=== PATIENT | female | born 1945 | race Caucasian/White ===

== ENCOUNTER → 2017-05-01 11:34 | Outpatient (POV) | payer MEDICARE, SELFPAY | PROVIDERS: PCP Internal Medicine Adolescent Medicine; Visit Provider Internal Medicine | DX: Z00.00 Encounter for general adult medical examination without abnormal findings (principal) ==

== ENCOUNTER → 2017-07-07 09:42 | Outpatient (CLI) | payer MEDICARE, SELFPAY ==
--- NOTE | 2017-07-07 09:45 | XR_ITS ---
XR knee LT 4V COMPARISON: Left knee 10/26/2016 HISTORY: Left knee pain TECHNIQUE: AP PA and lateral weight-bearing views and sunrise view FINDINGS: There is prominent joint space narrowing laterally and there is marked spurring of tibial spines. There is mild spurring of the lateral tibial plateau. There is narrowing of patellofemoral space with spurring of the superior and inferior borders of the patella. No definite fracture or loose body. IMPRESSION: Prominent heterogenic changes of knee primarily involving lateral joint space with interval progression of changes from the previous study with almost kihy-oq-ydgw appearance of the lateral joint space
== END ==
PROVIDERS: PCP Internal Medicine Adolescent Medicine; Visit Provider Orthopaedic Surgery
DX: M17.12 Unilateral primary osteoarthritis, left knee (principal)
CPT/HCPCS: 73564

== ENCOUNTER → 2018-01-29 09:11 | Outpatient (POV) | payer MEDICARE, SELFPAY | PROVIDERS: Visit Provider Nurse Practitioner Acute Care | DX: Z00.00 Encounter for general adult medical examination without abnormal findings (principal) ==

== ENCOUNTER → 2018-09-06 08:41 | Outpatient (CLI) | payer MEDICARE, SELFPAY ==
--- NOTE | 2018-09-06 08:46 | MM_ITS ---
MM Dig screening mamm BI w/CAD CAD Screening COMPARISON: Digital mammograms with CAD 12/26/2016 and additional prominence on views right breast 01/05/2017 INDICATION: There is a history of breast cancer in patient's paternal aunt. TECHNIQUE: Standard CC and MLO images were obtained. R2 CAD reviewed. FINDINGS: Scattered fibroglandular densities are seen throughout both breasts. The tiny nodular density deep within the right breast seen on previous exams is not definitely seen on today's study. This likely was a tiny microcyst which decompressed. There is a benign-appearing microcalcification right breast. There is no suspicious lesion and there are no suspicious microcalcifications. IMPRESSION: Fibrofatty parenchyma with no suspicious lesion seen BI-RADS Category: 2 Benign Finding(s) RECOMMENDED FOLLOW-UP: 1YR - 1 YEAR FOLLOW-UP (A letter has been sent to the patient regarding results of the study.)
== END ==
PROVIDERS: PCP Internal Medicine Adolescent Medicine; Visit Provider Internal Medicine Adolescent Medicine
DX: Z12.31 Encounter for screening mammogram for malignant neoplasm of breast (principal)
CPT/HCPCS: 77067

== ENCOUNTER → 2019-02-18 10:48 | Outpatient (CLI) | payer MEDICARE, SELFPAY ==
--- NOTE | 2019-02-18 10:52 | XR_ITS ---
PROCEDURE: XR KNEE LT 4V CLINICAL INDICATION: left knee pain COMPARISON: KNEE3R KNEE-3 VIEWS-RT from 05/13/2013 KNEE3L KNEE-3 VIEWS-LT from 05/13/2013 KNEE3L KNEE-3 VIEWS-LT from 10/26/2016 [id number] XR knee LT 4V from 07/07/2017 FINDINGS: No fracture or dislocation. No lytic or blastic change. There is normal mineralization. Are severe osteoarthritic changes of the lateral compartment and moderate to severe osteoarthritic change of the medial compartment and patellofemoral joint. The no fracture or dislocation. No lytic or blastic change. Other findings:None. IMPRESSION: Severe osteoarthritic change of the lateral compartment which appears slightly worse Dictated by: Anuj Horner MD 02/18/2019 12:35 Electronically signed by Anuj Horner MD in [place] 02/18/2019 12:35
== END ==
PROVIDERS: PCP Internal Medicine Adolescent Medicine; Visit Provider Orthopaedic Surgery
DX: M25.562 Pain in left knee (principal)
CPT/HCPCS: 73564

== ENCOUNTER → 2019-10-10 12:36 | Outpatient (CLI) | payer MEDICARE, SELFPAY ==
--- NOTE | 2019-10-10 12:41 | MM_ITS ---
PROCEDURE: MM DIG SCREENING MAMM BI W/CAD Digital Breast Tomosynthesis Included CLINICAL INDICATION: SCREENING There is a history of breast cancer patient's paternal aunt. COMPARISON: DMSB DIG MAMM-SCREEN JESICA W/CAD from 12/26/2016 [id number] DIG MAMM-DX UNI RT W/AV W/CAD from 01/05/2017 DIG MAMM-SCREEN JESICA from 09/06/2018 TECHNIQUE: Standard CC and MLO images and 3D Tomosynthesis was obtained. R2 CAD reviewed. FINDINGS: Scattered fibroglandular densities are seen throughout both breast. There is a benign-appearing calcification right breast. There is no suspicious lesion and no suspicious microcalcifications. IMPRESSION: Fibrofatty parenchyma with no suspicious lesions seen BI-RAD Category: 2 Benign Finding(s) FOLLOW-UP: 1YR 1 Year Follow-up (A letter has been sent to the patient regarding results of the study.) Dictated by: Dr. Haroon Dooley MD 10/14/2019 09:[address] Haroon Dooley MD in [place] 10/14/2019 09:45
== END ==
PROVIDERS: PCP Internal Medicine Adolescent Medicine; Visit Provider Internal Medicine Adolescent Medicine
DX: Z12.31 Encounter for screening mammogram for malignant neoplasm of breast (principal)
CPT/HCPCS: 77063; 77067

== ENCOUNTER → 2019-12-14 10:21 | Outpatient (CLI) | payer MEDICARE, SELFPAY ==
[2019-12-14 12:16] LABS: Coronavirus 19 IgG Antibody Negative (Negative); Coronavirus 19 IgM Antibody Negative (Negative)
== END ==
PROVIDERS: Visit Provider Internal Medicine Gastroenterology
DX: Z01.818 Encounter for other preprocedural examination (principal); Z13.810 Encounter for screening for upper gastrointestinal disorder; R13.10 Dysphagia, unspecified
CPT/HCPCS: 36415; 86328

== ENCOUNTER 2019-12-16 06:51 | Day surgery (SDC) | payer MEDICARE, SELFPAY ==
[2019-12-16 07:16] VITALS: BP 189/91; PULSE 79; RESP 20; TEMP 36.2; O2SAT 96; BMI 24.6
--- NOTE | 2019-12-16 07:59 | P.PN_ITS ---
[facility] Anesthesia Checklist - Structural Data Admitted From: Home Planned Operative Procedure/s: egd Consent for Planned Operative Procedure(s) Verified: Yes - Additional verifications Anesthesia Reactions: No Hx Blood Transfusions: No Blood Transfusion Reaction: Yes - Airway Assessment C-Spine Mobility Assessed: Yes TMJ Mobility Assessed: Yes Dentition: Good Dentition - Neurological Assessment Level of Consciousness: Awake, Alert, Appropriate - Anesthesia Plan Anesthesia Risk discussed: Yes Anesthesia Plan: Patient unable to respond/answer ASA Class: II Anesthesia Type: MAC [facility] History I have reviewed the patient's past medical history: Yes Medical History: Reports:: Asthma, Hyperlipidemia, Hypertension, Lung Disease, Osteoporosis Denies:: Cancer, Diabetes Mellitus Type 1, Diabetes Mellitus Type 2, Internal Pacemaker, Migraine, MRSA, Seizures *Have you ever received a pneumonia vaccine?: Yes *Have you received a flu vaccine this season?: Yes Other Medical History: Reports: Arthritis, Blood Transfusion Reaction, Osteoporosis Anesthesia experience/problems:: none Laterality Cases: Bilateral: Other Other Surgeries: Yes: Hysterectomy-Total, Other. No: Pacemaker Amputation: No Fractures: No - *Social History Smoking Status: Never smoker Alcohol Intake: never Substance Use Type: denies use *Occupational Status:: retired Housing: house Household Members: spouse *Travel in the last 8 weeks: None Family Hx:: Coronary Artery Disease
[2019-12-16 08:07] VITALS: O2SAT 97
--- NOTE | 2019-12-16 08:11 | HMH.PROC ---
[facility] Procedure Note Procedure Note:: Upper Endoscopy Procedure Report: Esophagogastroduodenoscopy with cold biopsies and TTS balloon dilation Endoscopost: Sterling Blanco II, MD Referring Physician: Car Kent M.D. Date of Procedure: December 16, 2019 Equipment: Olympus GIF 180 standard upper endoscope Sedation: MAC sedation Indications: Mrs. Delgado is a 74-year-old female with longstanding dyspepsia and reflux. She did have an EGD with pr in February 2016 and had increased cricopharyngeal resting tone/cricopharyngeal spasm with moderate esophageal dysmotility. She had a esophageal dilation at that time. She also had reactive gastropathy. She has been on Nexium long-term. She also takes domperidone before meals and at bedtime (4 times daily). She does use dead-hca-wdsezqp acid relievers including apple cider vinegar, tumeric, dalila and clove. The patient has had ongoing throat burning, globus sensation and dysphagia. She does get some regurgitation. She reports bloating, belching and early satiety. She gets some intermittent epigastric discomfort. She reports no nausea. She does have more regulated bowel function as long she uses the combine fiber bowel regimen (MiraLAX plus Metamucil). The patient did have a colonoscopy with pr in March 2018 and had 5 colon polyps (tubular adenomas x4/serrated adenoma x1) which were removed. The patient does report frequent clearance of the throat and coughing. Procedure: Prior to the procedure, a history and physical exam was performed, and patient's medications and allergies were reviewed. The risks, benefits and alternatives of the sedation and procedure were discussed with the patient. All questions were answered and informed consent was obtained. The patient was brought to the procedure room. Patient identification and proposed procedure were verified by the physician and the nurse. The patient was placed in a left lateral decubitus position and the scope was passed under direct vision. Throughout the procedure, the patient's blood pressure, pulse, and oxygen saturations were monitored continuously. The upper GI endoscopy was accomplished without difficulty. The patient tolerated the procedure well. Findings: The scope was passed directly into the upper esophagus and advanced to the third portion of the duodenum. The post bulbar duodenum and duodenal bulb were normal with normal mucosa and conniventes. The scope was withdrawn through a normal duodenal bulb and pylorus into the stomach. There was linear reactive gastropathy of the antrum and body of the stomach with bile reflux. The remainder of the antrum, body and fundus of the stomach were grossly normal. Upon retroflexion there was a small 2 cm sliding hiatal hernia. 2 biopsies were taken in the antrum and along the lesser curvature for histology to rule out gastritis and/or H pylori. The scope was then withdrawn into the esophagus. There was no evidence of reflux esophagitis or Paz's. There was no Schatzki's ring. There was a serrated Z line so biopsies were taken at the GE junction to rule out intestinal metaplasia. There were strong tertiary contractions and evidence of moderate esophageal dysmotility. The entire esophagus was dilated to 60 Bengali/20 mm with a TTS hydrostatic balloon. There was resistance at the cricopharyngeus/cricopharyngeal spasm. The remainder of the esophageal mucosa was normal. Impression: 1. Cricopharyngeal spasm status post dilation to 20 mm 2. Nonerosive GERD with moderate esophageal dysmotility and small 2 cm sliding hiatal hernia 3. Linear reactive gastropathy with bile reflux Plan: I will discuss additional dietary measures and treatment options. I will follow-up the biopsies.
[2019-12-16 08:25] VITALS: BP 135/75; PULSE 74; RESP 16; TEMP 36.3; O2SAT 98
[2019-12-16 08:35] VITALS: BP 163/92; PULSE 73; RESP 16; O2SAT 94
[2019-12-16 08:45] VITALS: BP 184/94; PULSE 68; RESP 16; O2SAT 94
[2019-12-16 08:55] VITALS: BP 184/84; PULSE 68; RESP 16; TEMP 36.3; O2SAT 94
== END 2019-12-16 08:59 | disposition home or self-care (01) ==
PROVIDERS: PCP Internal Medicine Adolescent Medicine; Visit Provider Internal Medicine Gastroenterology
PROC: 0DJ08ZZ Inspection of Upper Intestinal Tract, Via Natural or Artificial Opening Endoscopic (ICD-10-PCS; CPT 43235; principal; 2019-12-16 08:00)
DX: K31.9 Disease of stomach and duodenum, unspecified (principal); K22.4 Dyskinesia of esophagus; J39.2 Other diseases of pharynx; K21.9 Gastro-esophageal reflux disease without esophagitis; Z87.19 Personal history of other diseases of the digestive system; J45.909 Unspecified asthma, uncomplicated; E78.5 Hyperlipidemia, unspecified; I10 Essential (primary) hypertension; M81.0 Age-related osteoporosis without current pathological fracture; M19.90 Unspecified osteoarthritis, unspecified site; Z90.710 Acquired absence of both cervix and uterus; Z79.899 Other long term (current) drug therapy
CPT/HCPCS: 43239; 43249; 88305; C1726

== ENCOUNTER → 2020-02-11 09:57 | Outpatient (CLI) | payer MEDICARE, SELFPAY ==
--- NOTE | 2020-02-11 10:04 | XR_ITS ---
PROCEDURE: XR DEXA AXIAL SKELETON CLINICAL HISTORY: POST MENOPAUSAL Patient currently on calcium. COMPARISON: No exams were available for comparison FINDINGS: The right hip BMD is 0.734 grams/centimeter squared with a T-score of -1.7. The left hip BMD is 0.763 grams/centimeter squared with a T-score of -1.5. The lumbar spine BMD is 1.227 g per cm squared with a T-score of 1.6. IMPRESSION: Values in the osteopenia range lumbar spine and bilateral hips Based on these results a follow-up exam is recommended in 2 year. Dictated by: Dr. Haroon Dooley MD 02/11/2020 14:21 Dr. Haroon Dooley MD in [place] 02/11/2020 14:21
== END ==
PROVIDERS: PCP Internal Medicine Adolescent Medicine; Visit Provider Internal Medicine Adolescent Medicine
DX: Z13.820 Encounter for screening for osteoporosis (principal); Z78.0 Asymptomatic menopausal state
CPT/HCPCS: 77080

== ENCOUNTER → 2020-03-02 08:47 | Outpatient (POV) | payer MEDICARE, SELFPAY | PROVIDERS: Visit Provider Nurse Practitioner Family | DX: Z00.00 Encounter for general adult medical examination without abnormal findings (principal) ==

== ENCOUNTER → 2020-08-10 10:25 | Outpatient (CLI) | payer MEDICARE, SELFPAY ==
[2020-08-10 10:49] LABS: Basophils # 0.1 K/mm3 (0-0.2); Basophils % 1.5 % (0.1-2.0); Eosinophils # 0.2 K/mm3 (0.0-0.4); Hematocrit 44.3 % (37.0-47.0); Hemoglobin 14.4 g/dL (12.2-16.2); Lymphocytes # 1.1 K/mm3 (0.7-4.5); Lymphocytes % 18.2 % (10-50); Mean Corpuscular HGB Conc 32.6 g/dL (31.8-35.4); Mean Corpuscular Hemoglobin 30.5 pg (27.0-31.2); Mean Corpuscular Volume 93.8 fl (81-99); Mean Platelet Volume 7.1 fl (7.4-10.4); Monocytes # 0.4 K/mm3 (0.1-1.0); Monocytes % 5.7 % (1.7-9.3); Neutrophils # 4.4 K/mm3 (1.8-7.8); Neutrophils % 71.6 % (37.0-80.0); Platelet Count 353 K/mm3 (142-424); Red Blood Count 4.72 M/mm3 (4.20-5.40); Red Cell Distribution Width 14.1 % (11.5-17.5); White Blood Count 6.1 K/mm3 (4.8-10.8)
[2020-08-10 11:26] LABS: Alanine Aminotransferase 18 U/L (12-78); Albumin Level 4.1 g/dl (3.5-5.0); Albumin/Globulin Ratio 1.8 (1.1-1.8); Alkaline Phosphatase 78 U/L (38-126); Anion Gap 7.7 mEq/L (5-15); Aspartate Amino Transferase 26 U/L (14-36); Bilirubin,Total 0.6 mg/dl (0.2-1.3); Blood Urea Nitrogen 13 mg/dl (7-17); Calcium 9.4 mg/dl (8.4-10.2); Carbon Dioxide 31 mmol/L (22.0-30.0); Chloride 103 mmol/L (98-107); Chol/HDL Ratio 3.4 (1-3.5); Cholesterol 238 mg/dl (140-200); Estimated Glomerular Filt Rate 61 ml/min (>60); GFR (African American) 74 ML/MIN (>60); Globulin 2.3 g/dL (1.3-3.2); Glucose 95 mg/dl (74-100); HDL Cholesterol 70 mg/dl (40-60); Potassium 4.7 mmoL/L (3.5-5.1); Sodium 137 mmol/L (136-145); Total Protein,Serum 6.4 g/dl (6.3-8.2); Triglycerides 186 mg/dl (30-150); VLDL Cholesterol 37 mg/dL (0-40)
[2020-08-10 11:37] LABS: Direct LDL Cholesterol 117.51 mg/dL (100-129)
[2020-08-10 11:44] LABS: 25-OH Vitamin D, Total 46.1 ng/mL (30-100)
[2020-08-10 11:57] LABS: Thyroid Stimulating Hormone 1.66 uIU/mL (0.465-4.68)
[2020-08-10 12:15] LABS: Vitamin B12 942 pg/mL (239-931)
== END ==
PROVIDERS: Visit Provider Internal Medicine Adolescent Medicine
DX: I10 Essential (primary) hypertension (principal); E78.5 Hyperlipidemia, unspecified; F51.04 Psychophysiologic insomnia; M85.89 Other specified disorders of bone density and structure, multiple sites
CPT/HCPCS: 36415; 80053; 80061; 82306; 82607; 84443; 85025

== ENCOUNTER → 2020-09-07 09:03 | Outpatient (POV) | payer MEDICARE, SELFPAY | PROVIDERS: Visit Provider Nurse Practitioner Family | DX: Z00.00 Encounter for general adult medical examination without abnormal findings (principal) ==

== ENCOUNTER → 2021-08-24 13:11 | Outpatient (POV) | payer MEDICARE, SELFPAY | PROVIDERS: Visit Provider Dermatology | DX: Z00.00 Encounter for general adult medical examination without abnormal findings (principal) ==

== ENCOUNTER → 2022-03-01 14:00 | Outpatient (POV) | payer MEDICARE, SELFPAY | PROVIDERS: Visit Provider Dermatology | DX: Z00.00 Encounter for general adult medical examination without abnormal findings (principal) ==

== ENCOUNTER → 2022-03-15 10:05 | Outpatient (CLI) | payer MEDICARE, SELFPAY ==
--- NOTE | 2022-03-15 10:09 | XR_ITS ---
FINAL REPORT CLINICAL HISTORY: CERVICALGIA FINDINGS: CERVICAL SPINE Five views were obtained. There is no acute fracture. There is no malalignment. There are moderate and severe degenerative changes greatest at C5-C6. There is multilevel disc space narrowing and osteophyte formation. Mild kyphosis is centered at C5-C6. The oblique images are suboptimal. There is mild right C2-C3 and C6-C7 neural foraminal narrowing. IMPRESSION: Moderate and severe degenerative changes. Reviewed, Interpreted and Dictated by Artur Corona III, MD Transcribed by Eduin Solano Authenticated and [facility]
== END ==
PROVIDERS: PCP Internal Medicine Adolescent Medicine; Visit Provider Internal Medicine Adolescent Medicine
DX: M54.2 Cervicalgia (principal)
CPT/HCPCS: 72050

== ENCOUNTER → 2022-06-24 11:02 | Outpatient (CLI) | payer MEDICARE, SELFPAY ==
--- NOTE | 2022-06-24 11:07 | XR_ITS ---
FINAL REPORT CLINICAL HISTORY: WHEEZING CHRONIC BRONCHITIS FINDINGS: TWO-VIEW CHEST The heart size is normal. There is an elevated left hemidiaphragm. There is scarring at the left base. There is no pneumothorax. IMPRESSION: No acute cardiopulmonary process. Reviewed, Interpreted and Dictated by Amol Eagle MD Transcribed by Edna Torres Authenticated and . [facility]
== END ==
PROVIDERS: PCP Internal Medicine Adolescent Medicine; Visit Provider Nurse Practitioner Family
DX: J45.998 Other asthma (principal)
CPT/HCPCS: 71046

== ENCOUNTER → 2022-08-08 08:43 | Outpatient (CLI) | payer MEDICARE, SELFPAY | PROVIDERS: PCP Internal Medicine Adolescent Medicine; Visit Provider Internal Medicine Adolescent Medicine | DX: I47.9 Paroxysmal tachycardia, unspecified (principal); I10 Essential (primary) hypertension; R13.13 Dysphagia, pharyngeal phase | CPT/HCPCS: 93306 ==

== ENCOUNTER → 2022-08-23 10:46 | Outpatient (CLI) | payer MEDICARE, SELFPAY ==
--- NOTE | 2022-08-23 10:52 | FL_ITS ---
FINAL REPORT CLINICAL HISTORY: ft 2.03min FINDINGS: MODIFIED BARIUM SWALLOW History: Dysphagia FINDINGS: Fluoroscopy was provided for the speech pathologist to evaluate the swallowing mechanism. The patient was given several different consistencies of barium while the swallow was visualized fluoroscopically. The report of the speech pathologist should be consulted prior to making dietary decisions. FLUOROSCOPY TIME:2 minutes 3 seconds IMPRESSION: Modified barium swallow under fluoroscopic guidance. Please see the report of the speech pathologist for Dietary recommendations. Films reviewed , interpreted and dictated by Dr. Corona Transcribed by Everette Orosco PA-C. Reviewed, Interpreted and Dictated by Artur Corona III, MD Transcribed by MARLEN Duke Authenticated and [facility]
--- NOTE | 2022-08-23 14:51 | HMH.SLMBS2 ---
Speech & Language Evaluation Speech/Language Mod Barium Swallow Start: 08/23/22 14:28 Freq: once Status: Complete Protocol: Document 08/23/22 14:28 ELEAZARSUZETTE (Rec: 08/23/22 14:51 ANIA [id number]) General Information General Current Food Consistancy Regular,Thin Liquids Dentition Good Dentition Oxygen Status Room Air Patient Orientation Person,Place,Time,Situation Ability to Follow Directions Excellent Communication Ability No Impairment MBS Recommendations Diet Dietary Recommendations Regular,Thin Liquids Treatment/Strategies Strategy/Precaution Recommend Sitting Upright (90 deg),Small Bites and Sips,Alternate Liquids/Solids Referrals/Other Recommended Referrals GI Consult Mod Barium Swallow Impressions Summary and Impressions Oral Phase Impression No Impairment (WFL) Oral Phase Summary No significant deficits noted in the oral phase. Adequate mastication, back of tonuge control, and AP tranist. Pt was able to timely and efficiently move the bolus back into the pharynx with no premature spillage present. No significant oral residue was present during the study. Pharyngeal Phase Impression Mild Impairment Pharyngeal Phase Summary Mild pahryngeal dysphagia. No aspiration or penetration was present during the study. Prominent cervical anatomy, including an outpouching of tissue on the posterior pharyngeal wall, is impacting the pharyngeal squeeze as well as BOT retraction, resulting in mild diffuse pharyngeal residue. Pt is able to significantly reduce the residue with independent subsequent swallows, but residue does not clear completely. Residue is increased with liquids vs. solids. She is able to clear pills with no issues. Speech/Language MBS Assessment/Goals/Plan Assessment Date of Evaluation: 08/23/22 Evaluation Type Initial Certification Assessment/Problems Chronic cough per pt report. Does Patient Qualify for Service No
== END ==
PROVIDERS: PCP Internal Medicine Adolescent Medicine; Visit Provider Internal Medicine Adolescent Medicine
DX: R13.13 Dysphagia, pharyngeal phase (principal); R00.0 Tachycardia, unspecified; I10 Essential (primary) hypertension
CPT/HCPCS: 70371; 92611

== ENCOUNTER → 2022-09-06 08:43 | Outpatient (CLI) | payer MEDICARE, SELFPAY ==
--- NOTE | 2022-09-06 08:55 | XR_ITS ---
FINAL REPORT CLINICAL HISTORY: RT KNEE PAIN FINDINGS: Four views of the right knee show no evidence of an acute, displaced fracture or dislocation of the visualized bony architecture. There is mild tricompartment degenerative change present. A small joint effusion is identified. IMPRESSION: Mild tricompartment degenerative change of the right knee, with a small joint effusion present. No acute bony abnormality identified. Reviewed, Interpreted and Dictated by Marisa Barakat MD Transcribed by Lara Villalobos Authenticated and [facility]
== END ==
PROVIDERS: PCP Internal Medicine Adolescent Medicine; Visit Provider Orthopaedic Surgery Adult Reconstructive Orthopaedic Surgery
DX: M25.561 Pain in right knee (principal)
CPT/HCPCS: 73564

== ENCOUNTER → 2022-11-08 09:27 | Outpatient (CLI) | payer MEDICARE, SELFPAY ==
--- NOTE | 2022-11-08 09:45 | XR_ITS ---
FINAL REPORT TECHNIQUE: 3 views CLINICAL HISTORY: LOW BACK PAIN COMPARISON: None FINDINGS: There is no fracture present. There are severe degenerative changes with vacuum phenomenon at several levels. There is multilevel disc space narrowing, and multilevel facet osteoarthropathy. There is mild curvature to the left at the L2 level. Vascular calcifications are identified. IMPRESSION: Severe degenerative change as described. No acute bony abnormality identified. Reviewed, Interpreted and Dictated by Artur Corona III, MD Transcribed by Lara Villalobos Authenticated and [facility]
== END ==
PROVIDERS: PCP Internal Medicine Adolescent Medicine; Visit Provider Physician Assistant
DX: M54.50 Low back pain, unspecified (principal)
CPT/HCPCS: 72100

== ENCOUNTER → 2022-12-23 13:47 | Outpatient (CLI) | payer MEDICARE, SELFPAY ==
--- NOTE | 2022-12-23 13:53 | MR_ITS ---
FINAL REPORT CLINICAL HISTORY: LOW BACK PAIN FINDINGS: Multiplanar MR imaging of the lumbar spine was performed without contrast. On the sagittal T2-weighted images, there is abnormal decreased signal throughout the lumbar discs. The vertebrae are of normal height. The vertebral alignment is normal. L1-2: There is no significant canal stenosis or neural foraminal narrowing. L2-3: There is a moderate diffuse disc bulge with moderate to high-grade right neuroforaminal narrowing. L3-4: There is a moderate diffuse disc bulge with posterior lateral disc protrusions. There is moderate to high-grade bilateral neuroforaminal narrowing. L4-5: There is a diffuse disc bulge and a left posterior lateral disc protrusion. There is high-grade left neuroforaminal narrowing. L5-S1: There is a diffuse disc bulge and endplate hypertrophy. There is high-grade bilateral neuroforaminal narrowing. IMPRESSION: Multilevel neuroforaminal compromise most evident on the right at L2-3, bilaterally at L3-4, on the left at L4-5, and bilaterally at L5-S1. Correlate with specific radicular symptoms. Reviewed, Interpreted and Dictated by Amol Eagle MD Transcribed by Marybel Rucker Authenticated and [facility]
== END ==
LOC: RAD 13:47
PROVIDERS: PCP Internal Medicine Adolescent Medicine; Visit Provider Orthopaedic Surgery Adult Reconstructive Orthopaedic Surgery
DX: M54.50 Low back pain, unspecified (principal)
CPT/HCPCS: 72148; 76376

== ENCOUNTER 2023-08-29 08:47 | Day surgery (SDC) | payer MEDICARE, SELFPAY ==
[2023-08-29] VITALS (8 sets, daily range): BP systolic 111–183; BP diastolic 55–87; PULSE 64–78; RESP 16–19; TEMP 36.6; O2SAT 94–98
[2023-08-29] MEDS: CYCLOPENTOLATE 2% OPHTH SOLN 2ML BOTTLE OP ×3 (10:02→10:05)
[2023-08-29] MEDS: TETRACAINE 0.5% OPTH SOL 15ML OP ×3 (10:02→10:04)
[2023-08-29] MEDS: PHENYLEPHRINE 2.5% OPHTH SOLN 2ML OP ×3 (10:02→10:05)
[2023-08-29] MEDS: SODIUM CHLORIDE 0.9% 10ML FLUSH SYRINGE 10 ML IV ×2 (10:03→11:10)
[2023-08-29] MEDS: MIDAZOLAM 2MG/2ML VIAL 1 MG IV (11:06)
[2023-08-29] MEDS: TIMOLOL 0.5% OPTH SOLN 5ML OP (11:10)
[2023-08-29] MEDS: TOBRAMYCIN/DEX OPTH SUSP 2.5ML OP (11:11)
[2023-08-29] MEDS: LIDOCAINE 1% PF 2ML AMPULE 2 ML IJ (11:11)
--- NOTE | 2023-09-12 13:19 | HMH.PROCNOTE ---
[facility] Procedure Note Date: 08/29/23 Time: 13:20 Procedure Note:: Preoperative Diagnosis: Cataract combined NS Cortical Complex [Right Eye Postop diagnosis: same Operation: Microscopic phacoemulsification with intraocular lens implant [Right] Eye Specimen: None Blood Loss: None The patient was examined in the office with a complaint of poor vision in the [right] eye. The patient reports that this interferes with ADLs such as reading, watching TV and/or driving or the vision is like looking through a foggy haze and is very troubling. The patient was examined and found to have a visually significant cataract with best corrected vision of [20/400] by refraction and/or glare testing. Treatment options, risks and benefits were explained and the patient elected to have cataract surgery in an attempt to improve their vision. The patient had the eye anesthetized with topical tetracaine, the eye ways prepped and draped in the usual fashion for cataract surgery. A paracentesis and a temporal keratotomy were made. 0.2cc of 1% lidocaine PF was placed into the anterior chamber. And aqueous/viscoelastic exchange was done and a 360 degree capsulorexis was performed. Through hydrodissection and delineation with BSS on a cannula was done. The lens nucleus was phecoemulsified with CDE of [10.83]. Residual cortical material was removed using automated I&A The capsular bag was deepened with viscoelastica and a PCIOL was placed in the capsular bag with good centration and stability. Residual viscoelastic was removed using automated I&A. The keratotomy incision was hydrated with BSS on a cannula. The wound were checked and found to be water tight. IOP was checked digitally and adjusted as needed so as not to be too high. 1 drop of timolol 0.5%, ofloxacin, prednisolone acetate and ketorolac was instilled and eye shield taped over the eye. The patient was taken to recovery in good condition and will be seen postoperatively.
== END 2023-08-29 11:40 | disposition home or self-care (01) ==
PROVIDERS: PCP Internal Medicine Adolescent Medicine; Visit Provider Ophthalmology
PROC: (CPT 66984; principal; 2023-08-29 11:00)
DX: H25.11 Age-related nuclear cataract, right eye (principal); H53.8 Other visual disturbances
CPT/HCPCS: 66984; V2632

== ENCOUNTER 2023-09-12 08:50 | Day surgery (SDC) | payer MEDICARE, SELFPAY ==
[2023-09-08 13:54] VITALS: BMI 24.1
[2023-09-12] MEDS: PHENYLEPHRINE 2.5% OPHTH SOLN 2ML OP ×3 (09:40→09:41)
[2023-09-12] MEDS: CYCLOPENTOLATE 2% OPHTH SOLN 2ML BOTTLE OP ×3 (09:40→09:41)
[2023-09-12] MEDS: TETRACAINE 0.5% OPTH SOL 15ML OP ×3 (09:40→09:41)
[2023-09-12 09:47] VITALS: BP 161/83; PULSE 73; RESP 18; TEMP 36.2; O2SAT 98
[2023-09-12 11:03] VITALS: BP 173/81; PULSE 75; RESP 16; O2SAT 94
[2023-09-12] MEDS: MIDAZOLAM 2MG/2ML VIAL 2 MG (11:03)
[2023-09-12] MEDS: TOBRAMYCIN/DEX OPTH SUSP 2.5ML OP (11:07)
[2023-09-12] MEDS: LIDOCAINE 1% PF 2ML AMPULE 2 ML IJ (11:07)
[2023-09-12] MEDS: TIMOLOL 0.5% OPTH SOLN 5ML OP (11:07)
[2023-09-12 11:08] VITALS: BP 141/77; PULSE 80; RESP 16; O2SAT 94
[2023-09-12] MEDS: SODIUM CHLORIDE 0.9% 10ML FLUSH SYRINGE 10 ML IV (11:08)
[2023-09-12 11:13] VITALS: BP 136/75; PULSE 75; RESP 16; O2SAT 96
[2023-09-12 11:18] VITALS: BP 140/81; PULSE 76; RESP 16; O2SAT 96
[2023-09-12 11:20] VITALS: BP 159/79; PULSE 77; RESP 16; TEMP 36.2; O2SAT 100
--- NOTE | 2023-09-12 13:06 | HMH.PROCNOTE ---
[facility] Procedure Note Date: 09/12/23 Time: 13:06 Procedure Note:: Preoperative Diagnosis: Cataract combined NS Cortical Complex [Left] Eye Postop diagnosis: same Operation: Microscopic phacoemulsification with intraocular lens implant [Left] Eye Specimen: None Blood Loss: None The patient was examined in the office with a complaint of poor vision in the [left] eye. The patient reports that this interferes with ADLs such as reading, watching TV and/or driving or the vision is like looking through a foggy haze and is very troubling. The patient was examined and found to have a visually significant cataract with best corrected vision of [20/400] by refraction and/or glare testing. Treatment options, risks and benefits were explained and the patient elected to have cataract surgery in an attempt to improve their vision. The patient had the eye anesthetized with topical tetracaine, the eye ways prepped and draped in the usual fashion for cataract surgery. A paracentesis and a temporal keratotomy were made. 0.2cc of 1% lidocaine PF was placed into the anterior chamber. And aqueous/viscoelastic exchange was done and a 360 degree capsulorexis was performed. Through hydrodissection and delineation with BSS on a cannula was done. The lens nucleus was phecoemulsified with CDE of [9.68]. Residual cortical material was removed using automated I&A The capsular bag was deepened with viscoelastica and a PCIOL was placed in the capsular bag with good centration and stability. Residual viscoelastic was removed using automated I&A. The keratotomy incision was hydrated with BSS on a cannula. The wound were checked and found to be water tight. IOP was checked digitally and adjusted as needed so as not to be too high. 1 drop of timolol 0.5%, ofloxacin, prednisolone acetate and ketorolac was instilled and eye shield taped over the eye. The patient was taken to recovery in good condition and will be seen postoperatively.
== END 2023-09-12 11:32 | disposition home or self-care (01) ==
PROVIDERS: PCP Internal Medicine Adolescent Medicine; Visit Provider Ophthalmology
PROC: (CPT 66984; principal; 2023-09-12 11:00)
DX: H25.12 Age-related nuclear cataract, left eye (principal)
CPT/HCPCS: 66984; J2250; V2632

== ENCOUNTER 2023-10-04 09:38 | Outpatient (CLI) | payer MEDICARE, SELFPAY ==
--- NOTE | 2023-10-04 09:44 | XR_ITS ---
FINAL REPORT CLINICAL HISTORY: Foot pain COMPARISON: None FINDINGS: LEFT FOOT: Three views of the left foot were obtained. There is no acute fracture or dislocation. Mild degenerative changes present as well as a small plantar calcaneal spur. A pes planus deformity is noted. There is no soft tissue abnormality. IMPRESSION: Mild degenerative change with a small plantar calcaneal spur. Pes planus deformity. Reviewed, Interpreted and Dictated by Artur Corona III, MD Transcribed by Lara Villalobos Authenticated and [facility] [place] [place]
--- NOTE | 2023-10-04 09:44 | XR_ITS ---
FINAL REPORT CLINICAL HISTORY: Foot pain COMPARISON: None FINDINGS: RIGHT FOOT: Three views of the right foot were obtained. There is no acute fracture or dislocation. Mild degenerative change is present in the right foot, with a plantar calcaneal spur. A pes planus deformity is present as well. There is no soft tissue abnormality. IMPRESSION: Mild degenerative change, with a plantar calcaneal spur. Pes planus deformity. Reviewed, Interpreted and Dictated by Artur Corona III, MD Transcribed by Lara Villalobos Authenticated and [facility]
== END 2023-10-04 23:59 | disposition home or self-care (01) ==
LOC: RAD 09:42
PROVIDERS: PCP Internal Medicine Adolescent Medicine; Visit Provider Nurse Practitioner
DX: M79.671 Pain in right foot; M79.672 Pain in left foot
CPT/HCPCS: 73630

== ENCOUNTER 2023-10-23 10:41 | Outpatient (CLI) | payer MEDICARE, SELFPAY ==
--- NOTE | 2023-10-23 10:42 | CT_ITS ---
FINAL REPORT CLINICAL HISTORY: Right Foot Mass top of right foot FINDINGS: CT RIGHT FOOT WITHOUT AND WITH CONTRAST TECHNIQUE: Pre and postcontrast axial and reformatted sagittal and coronal images were obtained of the right foot. This study was performed with techniques to keep radiation doses as low as reasonably achievable, (ALARA). Individualized dose reduction techniques using automated exposure control or adjustment of mA and/or kV according to the patient's size were employed. FINDINGS: There is a polypoid dermoid lesion along the dorsal mid lateral foot. This process extends to a depth of approximately 3 mm deep to the skin surface. Lesion measures 13 x 9 mm at the base with polypoid extension up to 13 mm. There is no bony involvement. No bone destruction is seen. IMPRESSION: Exophytic dermoid lesion of the lateral dorsal midfoot without bony involvement. Dermatology or surgical consultation is recommended. Reviewed, Interpreted and Dictated by Marisa Barakat MD Transcribed by Marybel Rucker Authenticated and [facility]
[2023-10-23 11:18] LABS: Blood Urea Nitrogen 21 mg/dl (7-17); Estimated Glomerular Filt Rate 53 ml/min (>60); GFR (African American) 65 ML/MIN (>60)
== END 2023-10-23 23:59 | disposition home or self-care (01) ==
LOC: RAD 10:42
PROVIDERS: PCP Internal Medicine Adolescent Medicine; Visit Provider Podiatrist
DX: R22.41 Localized swelling, mass and lump, right lower limb (principal); M79.671 Pain in right foot
CPT/HCPCS: 36415; 73702; 82565; 84520; Q9967

== ENCOUNTER 2023-10-26 09:34 | Outpatient (CLI) | payer MEDICARE, SELFPAY ==
[2023-10-26 10:23] LABS: Basophils % 0.2 % (0.1-2.0); Hematocrit 38.9 % (37.0-47.0); Hemoglobin 12.6 g/dL (12.2-16.2); Lymphocytes # 0.7 K/mm3 (0.7-4.5); Lymphocytes % 6.5 % (10-50); Mean Corpuscular HGB Conc 32.4 g/dL (31.8-35.4); Mean Corpuscular Hemoglobin 30.7 pg (27.0-31.2); Mean Corpuscular Volume 94.8 fl (81-99); Mean Platelet Volume 7.8 fl (7.4-10.4); Monocytes # 0.6 K/mm3 (0.1-1.0); Monocytes % 5.9 % (1.7-9.3); Neutrophils # 9.5 K/mm3 (1.8-7.8); Neutrophils % 87.4 % (37.0-80.0); Platelet Count 271 K/mm3 (142-424); Red Cell Distribution Width 14.5 % (11.5-17.5); White Blood Count 10.9 K/mm3 (4.8-10.8)
[2023-10-26 10:31] LABS: Alanine Aminotransferase 24 U/L (12-78); Albumin/Globulin Ratio 1.6 (1.1-1.8); Alkaline Phosphatase 64 U/L (38-126); Anion Gap 9.5 mEq/L (5-15); Aspartate Amino Transferase 31 U/L (14-36); Bilirubin,Total 0.3 mg/dl (0.2-1.3); Blood Urea Nitrogen 30 mg/dl (7-17); Calcium 9.3 mg/dl (8.4-10.2); Carbon Dioxide 28 mmol/L (22.0-30.0); Chloride 107 mmol/L (98-107); Estimated Glomerular Filt Rate 69 ml/min (>60); GFR (African American) 84 ML/MIN (>60); Globulin 2.5 g/dL (1.3-3.2); Glucose 74 mg/dl (74-100); Potassium 4.5 mmoL/L (3.5-5.1); Sodium 140 mmol/L (136-145); Total Protein,Serum 6.5 g/dl (6.3-8.2)
[2023-10-26 11:08] LABS: MANUAL DIFFERENTIAL MANUAL DIFFERENTIAL (MANUAL DIFF)
[2023-10-26 11:09] LABS: Erythrocyte Sedimentation Rate 12 mm/hr (0-30)
[2023-10-26 11:48] LABS: Lymphocytes % 9 % (10-50); Monocytes % 2 % (2-9); Neutrophils % 89 % (42-76); Platelet Estimate Normal; RBC Morphology Normal; Total Cells Counted 100
[2023-10-26 19:33] LABS: C-Reactive Protein 0.4 mg/L (0-4)
== END 2023-10-26 23:59 | disposition home or self-care (01) ==
LOC: LAB 09:36
PROVIDERS: PCP Internal Medicine Adolescent Medicine; Visit Provider Podiatrist
DX: R22.41 Localized swelling, mass and lump, right lower limb (principal); Z01.818 Encounter for other preprocedural examination
CPT/HCPCS: 36415; 80053; 85007; 85025; 85027; 85651; 86140

== ENCOUNTER 2023-10-30 12:05 | Outpatient (CLI) | payer MEDICARE, SELFPAY ==
--- NOTE | 2023-10-30 12:58 | XR_ITS ---
FINAL REPORT CLINICAL HISTORY: preop testing for respiratory clearance, shortness of breath COMPARISON: 06/24/2022 FINDINGS: PA and lateral views of the chest were obtained. The cardiac and mediastinal silhouettes are within normal limits. Again noted is elevation of the left hemidiaphragm with left basilar atelectasis. No nodule identified. There is no focal infiltrate, effusion, or pneumothorax. No acute osseous abnormality is identified. IMPRESSION: Left basilar atelectasis with elevation of the left hemidiaphragm. No nodule identified. Reviewed, Interpreted and Dictated by Adrianne Ly MD Transcribed by Cait Parisi Authenticated and . [facility]
--- NOTE | 2023-10-30 13:25 | ECG_ITS ---
APPROVED REPORT Exam: Resting ECG HR:73 bpm ECG Measurements Heart Rate 73 AXES HI 211 P 25 QRSd 73 QRS -23 QT 360 T 4 QTc 385 Conclusion SINUS RHYTHM WITH FIRST DEGREE AV BLOCK BORDERLINE LEFT AXIS DEVIATION [QRS AXIS < -20] LEFT VENTRICULAR HYPERTROPHY AND ST-T CHANGE [VOLTAGE CRITERIA PLUS ST/T ABNORMALITY] ABNORMAL ECG UNCONFIRMED REPORT Electronically signed by : Car Kent MD 10/31/2023 17:29:12
== END 2023-10-30 23:59 | disposition home or self-care (01) ==
LOC: RAD 12:09
PROVIDERS: PCP Internal Medicine Adolescent Medicine; Visit Provider Podiatrist
DX: Z01.818 Encounter for other preprocedural examination (principal); R22.41 Localized swelling, mass and lump, right lower limb; R94.31 Abnormal electrocardiogram [ECG] [EKG]; J98.11 Atelectasis
CPT/HCPCS: 71046; 93005

== ENCOUNTER 2023-11-02 10:49 | Day surgery (SDC) | payer MEDICARE, SELFPAY ==
[2023-10-31 09:10] VITALS: BMI 20.5
[2023-11-02] MEDS: LACTATED RINGERS 1000ML 1,000 ML 25 ML IV (11:09)
[2023-11-02 11:10] VITALS: BP 139/61; PULSE 85; RESP 18; TEMP 36.4; O2SAT 97; BMI 20.5
--- NOTE | 2023-11-02 11:40 | P.PNANES_ITS ---
[facility] Disclaimer: The information contained in this section may have been updated after the patient was seen, as this information can be updated by other users. Medical History Arthritis Seasonal allergies Hyperlipidemia Hypertension Surgical History Hx of hysterectomy History of right knee joint replacement Family History Other Heart disease Social History Smoking Status: Never smoker alcohol intake: never substance use type: denies use current occupational status: retired Travel in the last 8 weeks: None household members: spouse housing: house current occupational exposures/hazards: No caffeine: Yes [facility] Anesthesia Checklist Patient Identification Patient Identification: Arm Band Structural Data Admitted From: Home Planned Operative Procedure/s: Excision of Right Foot Soft Tissue Tumor/Cyst Consent for Planned Operative Procedure(s) Verified: Yes Verified Documents: Surgical Consent and History and Physical NPO Status Verified Time NPO: 00:00 Additional verifications Anesthesia Reactions: No Hx Blood Transfusions: No Blood Transfusion Reaction: No Airway Assessment Mallampati Score:: Class II C-Spine Mobility Assessed: Yes TMJ Mobility Assessed: Yes Dentition: Good Dentition (upper dentures removed) Neurological Assessment Level of Consciousness: Awake, Alert and Appropriate Anesthesia Plan Anesthesia Risk discussed: Yes Anesthesia Plan: Verified ASA Class: II Anesthesia Type: MAC
[2023-11-02] MEDS: CLINDAMYCIN PHOSPHATE/D5W 900 MG/50 ML PIGGYBACK 100 MG IV (12:35)
[2023-11-02] MEDS: BUPIVACAINE 0.5% 30ML VIAL 150 MG (12:41)
[2023-11-02 13:09] VITALS: BP 102/51; PULSE 78; RESP 16; TEMP 36.3; O2SAT 95
--- NOTE | 2023-11-02 13:09 | EXP.OP.NOTE ---
Date of procedure: 11/02/23 Pre-op Diagnosis:: Right foot soft tissue mass Right foot pain Post-op Diagnosis:: Same Procedure performed:: Right foot soft tissue mass/tumor excision Surgeon:: Petra Alejandre DPM [employer] OPERATOR:: [employer] Anesthesia: MAC and local (20cc 0.5% marques plain) Estimated blood loss (mL): 10 Clinical Note:: Patient is 78 active female who presents with a hard mass on the top of the right foot. Reports growth for over 6 months. Pain with shoe gear and compression. Conservative treatment included ice, elevation, NSAIDs, strapping, taping, modification of shoe gear. Conservative treatment discussed but has been exhausted. We discussed surgery. All risks and benefits were discussed including but not limited to: recurrence of the mass, damage to blood vessels and nerves, bleeding, infection, wound complications, need for further surgery, prolonged swelling of the extremity, prolonged pain, RSD/CRPS, DVT/PE, and anesthetic complications including . No guarantees were given. All questions fully answered. The patient verbalized understanding and consent was obtained. Medical clearance per Dr Kent. DOS: See H&P. Discussed in detail risk and benefits of surgery. All questions answered and patient is ready to proceed. Operative findings:: Right foot soft tissue mass noted. On the external aspect of the skin and there was a hard abnormal tumor which appeared like a toenail arising from the dorsal lateral aspect of the foot over the fifth met cuboid area. Area was excised and under the skin there was some ganglionic cystlike fluid noted. There was no defined ganglion cyst arising from the extensor tendons. There was no purulence, malodor or signs of infection noted. Operative note:: On this date and time patient was deemed an appropriate surgical candidate. With informed consent signed, the patient was taken to the operating theater. The patient was positioned supine. MAC anesthesia was induced. Tourniquet was applied to mid-calf and set at 225 mmHg. Pre-op left ankle block given with 10 cc 0.5% marcaine plain. IV clindamycin given. Right soft tissue mass, tumor excision: The right extremity was prepped and draped in normal sterile fashion. Attention was directed to the lateral right foot where a visible and palpable soft tissue mass was noted. A hurricane incision was mapped out over the mass. Dissection was carried through the skin through subcutaneous tissue with care taken to maintain surgical hemostasis and safely retract neurovascular structures. The mass was visible through skin on 1 side appearing like a toenail and extended full-thickness overlying the deep fascia. Using a mixture of sharp and blunt and dissection technique the mass was isolated. There was clear fluid underneath the mass like cystic fluid with no defined ganglion cyst. Dissection was carried down the deep fascia overlying the ligament of the fifth metatarsal cuboid joint and no definitive mass or ganglion cyst noted. The tumor was removed and sent as a specimen. The wound was flushed with copious amounts of normal sterile saline. The tourniquet was not utilized. Bleeding controlled. No electrocautery was necessary. The wounds once again flushed with copious amounts of normal sterile saline. It was reexplored and no more evidence of soft tissue mass. No signs of infection. 3-0 Vicryl was used to close deep tissue. 4-0 Monocryl was then used to reapproximate the subcutaneous tissue and skin in a running subcuticular fashion. Due to the very thin Saran wrap like skin tissue, the incision did not fully reapproximate. Decision made to use 3-0 nylon to better reapproximate the wound edges. The wounds were cleansed. 10 cc 0.5% marcaine plain was injected at the end of the case around the incision and in an ankle block. Xeroform, dry sterile dressing was then applied to the right foot. The patient was awoken from anesthesia and transferred to recovery with vital signs stable and neurovascular status intact. She appeared to tolerate procedure and anesthesia well without complication. Discharge/Plan: Ok to discharge home today when vss. Patient is to maintain dressing clean dry and intact. Elevate on two pillows. Partial weight bearing to the right lower extremity with DME assistance (walker). Follow up in one week as previously scheduled for incision check. Condition: stable Disposition: same day Specimens:: Right foot soft tissue mass/tumor Complications:: None
[2023-11-02 13:19] VITALS: BP 120/66; PULSE 74; RESP 16; O2SAT 100
[2023-11-02 13:29] VITALS: BP 133/74; PULSE 77; RESP 16; O2SAT 99
[2023-11-02 13:39] VITALS: BP 130/71; PULSE 70; RESP 16; O2SAT 99
== END 2023-11-02 14:00 | disposition home or self-care (01) ==
PROVIDERS: PCP Internal Medicine Adolescent Medicine; Visit Provider Podiatrist
PROC: (CPT 11621; principal; 2023-11-02 12:15)
DX: C44.722 Squamous cell carcinoma of skin of right lower limb, including hip (principal); I10 Essential (primary) hypertension
CPT/HCPCS: 11621; 88305; 96374; C9144; J1100; J2250; J2405; J2704; J7120

== ENCOUNTER 2023-11-10 09:12 | Outpatient (CLI) | payer MEDICARE, SELFPAY ==
--- NOTE | 2023-11-10 09:13 | CT_ITS ---
FINAL REPORT TECHNIQUE: Thin section axial CT images with coronal and sagittal reformats were performed of the right lower leg. This study was performed with techniques to keep radiation doses as low as reasonably achievable (ALARA). Individualized dose reduction techniques using automated exposure control or adjustment of mA and/or kV according to the patient''s size were employed. CLINICAL HISTORY: Evaluate for bone changes, bone cancer/tumor. COMPARISON: None FINDINGS: Postoperative changes are present from knee arthroplasty. There is a lucency in the intercondylar region of the distal femur favored to represent postoperative change. There are no acute fractures. The right tibia and fibula appear unremarkable. There are no masses or fluid collections. The musculature is intact. There are no soft tissue abnormalities. IMPRESSION: Postoperative changes without acute abnormality. Reviewed, Interpreted and Dictated by Artur Corona III, MD Transcribed by Cait Parisi Authenticated and [facility]
--- NOTE | 2023-11-10 09:13 | CT_ITS ---
FINAL REPORT TECHNIQUE: Thin section axial CT images with coronal and sagittal reformats were performed of the right foot. This study was performed with techniques to keep radiation doses as low as reasonably achievable (ALARA). Individualized dose reduction techniques using automated exposure control or adjustment of mA and/or kV according to the patient''s size were employed. CLINICAL HISTORY: Evaluate for bone changes, bone cancer/tumor COMPARISON: None FINDINGS: There is mild degenerative change. Plantar calcaneal spur is present. There are no fractures. There are no masses or fluid collections. There are no soft tissue abnormalities. IMPRESSION: Mild degenerative changes of the right foot. Reviewed, Interpreted and Dictated by Artur Corona III, MD Transcribed by Cait Parisi Authenticated and [facility]
--- NOTE | 2023-11-10 09:13 | CT_ITS ---
FINAL REPORT TECHNIQUE: Thin section axial CT images with coronal and sagittal reformats were performed of the right ankle. This study was performed with techniques to keep radiation doses as low as reasonably achievable (ALARA). Individualized dose reduction techniques using automated exposure control or adjustment of mA and/or kV according to the patient''s size were employed. CLINICAL HISTORY: Evaluate for bone changes, bone cancer/tumor COMPARISON: None FINDINGS: There are no acute fractures. There is a chronic osteochondral lesion of the medial talar dome with subchondral cysts in this region. There is mild degenerative change. A plantar calcaneal spur is noted. There are no masses or fluid collections. There are no soft tissue abnormalities. IMPRESSION: Medial talar dome chronic osteochondral lesion and subchondral cysts. Moderate degenerative change. Reviewed, Interpreted and Dictated by Artur Corona III, MD Transcribed by Cait Parisi Authenticated and [facility]
== END 2023-11-10 23:59 | disposition home or self-care (01) ==
LOC: RAD 09:12
PROVIDERS: PCP Internal Medicine Adolescent Medicine; Visit Provider Podiatrist
DX: R22.41 Localized swelling, mass and lump, right lower limb (principal); D49.2 Neoplasm of unspecified behavior of bone, soft tissue, and skin
CPT/HCPCS: 73700

== ENCOUNTER 2024-08-07 10:50 | Outpatient (CLI) | payer MEDICARE, SELFPAY ==
--- NOTE | 2024-08-07 10:57 | XR_ITS ---
FINAL REPORT CLINICAL HISTORY: PAIN picked up something yesterday and rt shoulder pain after that FINDINGS: Four views of the right shoulder were obtained. There is no fracture or dislocation. There is mild AC joint degenerative disease. Soft tissues are unremarkable. IMPRESSION: Mild AC joint degenerative disease. Reviewed, Interpreted and Dictated by Adrianne Ly MD Transcribed by Edna Torres Authenticated and [facility]
== END 2024-08-07 23:59 | disposition home or self-care (01) ==
LOC: RAD 10:52
PROVIDERS: PCP Internal Medicine Adolescent Medicine; Visit Provider Internal Medicine Adolescent Medicine
DX: M25.511 Pain in right shoulder (principal)
CPT/HCPCS: 73030

== ENCOUNTER 2024-10-05 21:25 | Emergency (ER) | payer MEDICARE, SELFPAY ==
[2024-10-05 21:32] VITALS: BP 188/83; PULSE 101; RESP 18; TEMP 37.1; O2SAT 95; BMI 22.9
--- OUTSIDE RECORDS SUMMARY | 2024-10-05 21:33 | XMS_ITS | Clinical Summary ---
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 Name Role Phone Car Kent MD Primary Care Provider Immunizations Immunization Administration Dates Next Due Influenza, injectable, quadr ivalent, preservative free, pediatric 11/28/2016 Family History Medical History Relation Name Comments Heart attack Daughter 1 Conversions - Other Daughter 2 Rheumato id aortitis Cardiac disorder Father Lung disease Father Cardiac disorder Mother Diabetes type I Son Relation Name Status Comments Daughter 1 Daughter 2 Father Mother Son Social History Tobacco Use Types Packs/Day Years Used Date Smoking Tobacco: Never Alcohol Use Standard Drinks/Week Comments No 0 (1 standard drink = 0.6 oz pur e alcohol) Comments Unknown Sex and Gender Information Value Date Recorded Sex Assigned at Not on file Legal Sex Female 5:55 PM EDT Gender Identity Not on file Sexual Orientation Not on file Last Filed Vital Signs Vital Sign Reading Time Taken Comments Blood Pressure 155/86 05/01/2017 11:42 AM EST Pulse 72 05/01/2017 11:42 AM EST Temperature 36.7 C (98 F) 05/01/2017 11:42 AM EST Respiratory Rate 16 05/01/2017 11:4 2 AM EST Oxygen Saturation - - Inhaled Oxygen Concentration - - Weight 64.9 kg (142 lb 15.9 oz) 018 11:42 AM EST Height 165.1 cm (5' 5 ) 05/01/2017 11:4 2 AM EST Body Mass Index 23.79 05/01/2017 11:42 AM EST Plan of Treatment Health Maintenance Due Date Last Done Comments [facility]-Bone Density Scan 1944 [facility]-Depression Screening 1944 [facility]-Medicare Annual Wellness (AWV) 1944 [facility]-/Child/Adol SDOH Screenings 1944 [facility]- SDOH Screenings 1962 [facility]-Adult SDOH Screenings 1962 [facility]-DTaP,Tdap,and Td Vaccines (1 - Tdap) 07/26/1963 [facility]-Zoster Vaccines (1 of 2) 1994 [facility]-Pneumococcal Vaccine: 50+ Years (2 of 2 - PPSV23) 02/27/2018 02/27/2017 [facility]-RSV Vaccine: 60+ Years or (1 - 1-dose 75+ series) 07/26/2019 [facility]-AEOWX-10 Vaccine (3 - season) 2023 03/22/2021, 06/10/2020 [facility]-Influenza Vaccine (#1) 12/02/202412/24, 11/28/2016 HPV Vaccines Aged Out No longer eligi ble based on patient's age to complete this topic [facility]-HIB Vaccines Aged Out No longer e ligible based on patient's age to complete this topic [facility]-Hepatitis A Vaccines Aged Out No longer eligible based on patient's age to complete this topic [facility]-IPV Vaccines Aged Out No longer e ligible based on patient's age to complete this topic [facility]-Rotavirus Vaccines Aged Out No lo nger eligible based on patient's age to complete this topic Insurance MEDICARE Care Teams Aeronautical Engineering Professor Relationship Specialty Start Date End Date Car Kent MD [address] [place] [address] [facility] - General 08/14/20
--- NOTE | 2024-10-05 21:59 | XR_ITS ---
PROCEDURE INFORMATION: Exam: XR Right Tibia and Fibula Exam date and time: 10/05/2024 10:05 PM Age: 79 years old Clinical indication: Injury or trauma; Fall; Bleeding/hemorrhage and blunt trauma and laceration; Lower leg; Right; Foreign body involvement not specified TECHNIQUE: Imaging protocol: Radiologic exam of the right tibia and fibula. Views: 2 views. COMPARISON: CT FOOT RT WO CON 11/10/2023 9:36 AM FINDINGS: Bones/joints: Unremarkable knee arthroplasty without periprosthetic lucency. No fracture. Normal alignment. No effusion. Soft tissues: Laceration along lateral thigh. No radiopaque non surgical foreign body identified. IMPRESSION: 1. No acute radiographic osseous findings. 2. Calf laceration without obvious radiopaque foreign body identified.
[2024-10-05 22:00] VITALS: BP 163/82; PULSE 92; O2SAT 94
--- NOTE | 2024-10-05 22:01 | HMH.EDGENADL ---
Discharge Plan Disposition Patient Disposition: Home, Self-Care Prescriptions Prescriptions: New clindamycin HCl 150 mg capsule 450 mg PO Q8H 5 Days Qty: 45 0RF No Action carvedilol [Coreg] 12.5 mg tablet 12.5 mg PO DIRECTED multivitamin [Daily Multi-Vitamin] tablet 1 tab PO QAM losartan [Cozaar] 25 mg tablet 50 mg PO QDAY albuterol sulfate [Ventolin HFA] 90 mcg/actuation HFA aerosol inhaler 1 puff INHALATION ONCE PRN (Reason: asthma) doxycycline hyclate 100 mg capsule 100 mg PO BID 5 Days Qty: 10 0RF hydrocodone-acetaminophen 5-325 mg tablet 1 tab PO BID PRN (Reason: Pain) 3 Days Qty: 6 0RF ondansetron 4 mg tablet,disintegrating 4 mg PO Q6H PRN (Reason: nausea and vomiting) 7 Days Qty: 28 2RF ropinirole 1 mg Tablet 1 mg PO DAILY omeprazole 10 mg Capsule,Delayed Release(Dr/Ec) 10 mg PO DAILY diltiazem HCl [DILT-XR] 120 mg Capsule,Ext.Rel 24h Degradable 120 mg PO DAILY loratadine [Claritin] 10 mg Tablet 10 mg PO DAILY PRN (Reason: Allergy Symptoms) rosuvastatin 5 mg Tablet 5 mg PO DAILY levocetirizine [Xyzal] 5 mg Tablet 5 mg PO NEEDED PRN (Reason: Allergy Symptoms) Breztri Aerosphere 160-9-4.8 mcg/actuation Hfa Aerosol Inhaler 2 inh INHALATION BID Referrals Follow up/Referrals: Car Kent MD [Primary Care Provider, Internal Medicine] - See instructions Activity Restrictions/Add. Instructions Additional Instructions/Restrictions: As discussed [facility] will be calling you first thing on Monday for you to be seen in Dr. Mcmillan's clinic on Monday. Dr. Mcmillan is a plastic surgeon [facility]. As discussed regarding her wound management keep the basal layer that is petroleum over the wound itself and then wet-to-dry dressings as discussed and then you may cover it with Kerlix and an Fortino wrap. This can all be done until you are seen by the plastic surgery team on Monday. Take your prophylactic antibiotics as prescribed. Clinical Impressions Clinical Impression: Avulsion of soft tissue of left lower leg Instructions Patient Instructions: DI for Laceration Repair Print Language Print Language: Ukrainian Discharge ED Provider: Salina Pineda General Adult HPI General Chief complaint: Wound/Laceration Stated complaint: Laceration Time Seen by Provider: 10/05/24 21:52 Mode of Arrival: Wheelchair Source of Information: Patient Description of Symptoms (Recalled from ER Triage Doc. by RN): PT presents to the ED for evaluation of laceration to R lateral lower leg. PT stated she tripped on a brick wall and the brick hit her leg. PT denies hitting head. Denies blood thinners. History of Present Illness HPI narrative: Patient is an 79-year-old female presenting today with a wound to the right lower leg. States that she fell onto some pavers that had a sharp edge sustaining a significant tissue injury to the anterior aspect of right lower extremity. Denies any blood thinners denies any injuries elsewhere she has been able to ambulate. Related Data Home Medications ?Medication ?Instructions ?Recorded ?Confirmed albuterol sulfate 90 mcg/actuation 1 puff inhalation ONCE PRN asthma 04/11/17 10/05/24 aerosol inhaler (Ventolin HFA) losartan 25 mg tablet (Cozaar) 50 mg PO QDAY bp 04/11/17 10/05/24 multivitamin (Daily Multi-Vitamin 1 tab PO QAM Supplement 04/11/17 10/05/24 tablet) carvedilol 12.5 mg tablet (Coreg) 12.5 mg PO DIRECTED 10/04/23 10/05/24 budesonide 160 mcg-glycopyr 9 2 inh inhalation BID 10/31/23 10/05/24 mcg-formot 4.8 mcg/actuation HFA inhaler (Breztri Aerosphere) diltiazem HCl 120 mg 120 mg PO DAILY 10/31/23 10/05/24 capsule,extended release 24 hr, controlled (DILT-XR) levocetirizine 5 mg tablet (Xyzal) 5 mg PO NEEDED PRN Allergy 10/31/23 10/05/24 Symptoms loratadine 10 mg tablet (Claritin) 10 mg PO DAILY PRN Allergy Symptoms 10/31/23 10/05/24 omeprazole 10 mg capsule,delayed 10 mg PO DAILY 10/31/23 10/05/24 release ropinirole 1 mg tablet 1 mg PO DAILY 10/31/23 10/05/24 rosuvastatin 5 mg tablet 5 mg PO DAILY 10/31/23 10/05/24 Previous Rx's ?Medication ?Instructions ?Recorded ondansetron 4 mg disintegrating 4 mg PO Q6H PRN nausea and 10/30/23 tablet vomiting 7 days #28 tabs doxycycline hyclate 100 mg capsule 100 mg PO BID cellulitis 5 days 11/13/23 #10 caps hydrocodone 5 mg-acetaminophen 325 1 tab PO BID PRN Pain 3 days #6 11/23/23 mg tablet tabs clindamycin HCl 150 mg capsule 450 mg (3 x 150 mg) PO Q8H 5 days 10/05/24 #45 caps Allergies Allergy/AdvReac Type Severity Reaction Status Date / Time acetaminophen (From PERCOCET) Allergy Intermediate NAUSEA/VOMI Verified 10/05/24 21:37 TTING oxycodone (From PERCOCET) Allergy Intermediate NAUSEA/VOMI Verified 10/05/24 21:37 TTING Sulfa (Sulfonamide Allergy Mild Rash Verified 10/05/24 21:37 Antibiotics) doxycycline (DOXYCYCLINE) Allergy Unknown Unknown Verified 10/05/24 21:37 allergy reaction ofloxacin (From FLOXIN) Allergy Unknown RESP DIFF Verified 10/05/24 21:37 Penicillins Allergy Unknown UNKNOWN Verified 10/05/24 21:37 [facility] Disclaimer: The information contained in this section may have been updated after the patient was seen, as this information can be updated by other users. Medical History Arthritis Seasonal allergies Hyperlipidemia Hypertension Surgical History Hx of hysterectomy History of right knee joint replacement Family History Other Heart disease Social History Smoking Status: Never smoker alcohol intake: never substance use type: denies use current occupational status: retired Travel in the last 8 weeks?: None household members: spouse housing: house current occupational exposures/hazards: No caffeine: Yes Have you lived/traveled outside US in past 30 days?: No Contact w/someone who lives/traveled outside US past 30 days?: No Exposure to someone with infectious disease in past 14 days?: No Do you have a fever (greater than 100.4 F or 38 C)?: No Have you tested positive for COVID-19?: No Exposed to someone with COVID-19 in past 14 days?: No Do you have a sore throat?: No Do you have a cough?: No Do you have any weakness?: No Do you have any diarrhea?: No Are you experiencing any unusual bleeding?: Yes Do you have any muscle aches/pain?: No Do you have any abdominal pain?: No Are you experiencing loss of taste or smell?: No Other Medical History Have you received the Flu Vaccine for this season: Yes Have you received the Pneumonia Vaccine: No ROS Obtained: Yes All systems reviewed & no additional complaints except as documented Physical Exam General General appearance: alert and in no apparent distress Respiratory Respiratory exam: Present normal lung sounds bilaterally Cardiovascular Cardiovascular exam: Present regular rate Extremities Exam Extremities exam: Present other (Large open defect about 8 x 8 cm on the anterior aspect of the lower right extremity on the tib-fib region there is tissue avulsion no laceration goes to the depth of the subcutaneous fat there are multiple areas of superficial tissue skin flaps no tissue that is able to be reapproximated) Neurological Exam Neurological exam: Present alert and oriented X3 Medical Decision Making Medical Records Screening: Per USPSTF and CDC recommendations, given the prevalence of disease in our region, it is our hospital?s policy to screen for HIV and viral Hepatitis for all patients aged 18 and over and those with ongoing risk factors. Parth Inquiry Pt receiving controlled substance: No Vital Signs: 10/05/24 21:32 Temperature 98.7 F Temperature Source Oral Pulse Rate [Right] 101 H Respiratory Rate 18 Blood Pressure [Right Arm] 188/83 H Blood Pressure Mean [Right Arm] 118 02 Sat by Pulse Oximetry 95 Oxygen Delivery Method Room Air Orders (Tests/Meds): ED MEDICATIONS Discontinued Medications Generic Name Dose Route Start Last Admin Trade Name Freq PRN Reason Stop Dose Admin Lidocaine/Epinephrine 1 ml 10/05/24 22:04 10/05/24 22:07 Lidocaine 1% W/Epi 1:100,000 20ml Vial SQ 10/05/24 22:05 1 vial ONCE ONE Administration ORDERS Category Date Time Status Tibia/fibula XR right 2 views [XR tibia fibula RT 2V] Exams 10/05/24 21:59 Completed Stat Medical Decision Narrative: 79-year-old female with superficial tissue avulsion of the anterior aspect of her tib-fib region there is no tissue that is able to be reapproximated her skin is very thin. This will need to be healed by secondary intention. I give her multiple options including calling [facility] plastic surgery and following up outpatient in their clinic after I cleaned and debrided the tissue versus following up with our wound management clinic. This will need to heal by secondary intention and she opted to follow-up locally with our wound management and understands that there is no tissue that is able to be reapproximated at this point. Wound was debrided and after further evaluation and debriding the friable tissue the depth of the wound went closer to the muscle than I previously thought. Therefore I felt that the patient needed close follow-up with plastic surgery I ended up speaking with Dr. Martínez with plastics to agreed to have the patient seen by Dr. Mcmillan on clinic on Monday. Patient also refused to be transferred but I did not feel that there could be any additional surgical intervention tonight. Patient has a penicillin allergy we will give prophylactic antibiotics and clindamycin has been sent to her pharmacy. After discussing wound management with plastic surgery we will keep Adaptic on the base wound and do wet-to-dry dressings covering them with Keflex and Fortino wrap's. She will see Dr. Mcmillan in plastic surgery clinic on Monday. Procedures Miscellaneous Procedure Procedure Performed: Procedure tissue debridement overlying tissue avulsion Indication multiple areas of superficial skin that has been a avulsed but is no longer viable Patient was numbed with 1% lidocaine with epinephrine 10 cc were placed into the locations of the wound it was extensively irrigated and nonviable tissue was debrided Patient tolerated procedure well. Critical Care Critical Care Time Critical Care Time: No
[2024-10-05] MEDS: LIDOCAINE 1% W/EPI 1:100,000 20ML VIAL SQ (22:07)
--- NOTE | 2024-10-05 22:37 | PC.NURSE ---
Provider at bedside.
--- NOTE | 2024-10-05 22:52 | PC.NURSE ---
Spoke with [facility]. speaking with at this time
[2024-10-05 23:00] VITALS: BP 137/68; PULSE 88; O2SAT 96
--- NOTE | 2024-10-05 23:25 | PC.NURSE ---
pts dressing changed at this time
[2024-10-05 23:35] VITALS: BP 148/73; PULSE 83; RESP 18; TEMP 36.9; O2SAT 96
--- NOTE | 2024-10-06 07:58 | PC.NURSE ---
pts son called and requested her antibiotic be sent to [facility].
== END 2024-10-05 23:38 | disposition home or self-care (01) ==
PROVIDERS: Emergency Provider Student in an Organized Health Care Education/Training Program; PCP Internal Medicine Adolescent Medicine
DX: S81.811A Laceration without foreign body, right lower leg, initial encounter (principal); W19.XXXA Unspecified fall, initial encounter
CPT/HCPCS: 11042; 73590; 99283; J2004

== ENCOUNTER 2024-10-16 11:06 | Outpatient (CLI) | payer MEDICARE, SELFPAY ==
--- OUTSIDE RECORDS SUMMARY | 2024-10-08 09:15 | XMS_ITS | Encounter Summary ---
Author Organization Healthcare Address [address] [place] [address] Care Team Providers Care Awnings Mechanic Name Role Phone Car Kent MD Primary Care Provider [phone] Encounter Details Date Type Department Care Team (Late st Contact Info) Description 10/08/2024 9:15 AM EDT Consult [facility] Plastic & Reconstructive Surgery [address] [place] [phone] Fuad Mcmillan MD [address] [phone] Open wound of right lower extremity, initial [...] form which was reviewed and scanned into [employer]. Negative for bleeding disorders, clotting disorders or [...] documented in this encounter Plan of Treatment Upcoming Encounters Date Type Department Care Team (Late st Contact Info) Description 10/24/2024 9:10 AM EDT Hospital Encounter [facility] [address] [place] [phone] Fuad Mcmillan MD [address] [phone] 10/24/2024 9:10 AM EDT - 10/24/2024 10:35 AM EDT Surgery [facility] [address] [place] [phone] Fuad Mcmillan MD [address] [phone] Split thickness skin graft to right lower extremity, debridement right lower extremity [67546 (CPT ) +1 more] Scheduled Procedures Name Priority Associated Diagnoses Date/Ti tn APPLICATION, GRAFT, SKIN, SPLIT-THICKNESS Wound of right lower extremity, subsequent encounter 10/24/2024 9:10 AM EDT documented as of this encounter Visit Diagnoses Diagnosis Open wound of right lower extremity, initial encounter- Primary Wound of right lower extremity, subsequent encounter documented in this encounter Additional Health Concerns Assessment Noted Time A Body Mass Index follow-up plan has been documented for the patient 10/08/2024 10:27 AM EDT documented as of this encounter Care Teams Awnings Mechanic Relationship Specialty Start Date End Date Car Kent MD [address] [place], [place] [address] PCP - General 08/14/20 documented as of this encounter
--- OUTSIDE RECORDS SUMMARY | 2024-10-15 09:45 | XMS_ITS | Encounter Summary ---
Author Organization Healthcare Address [address] [place] [address] Care Team Providers Care Marine Equipment Engineer Name Role Phone Car Kent MD Primary Care Provider [phone] Encounter Details Date Type Department Care Team (Late st Contact Info) Description 10/15/2024 9:45 AM EDT Office Visit [facility] Plastic & Reconstructive Surgery [address] [place] [phone] Fuad Mcmillan MD [address] [phone] Wound of right lower extremity, subsequent encounter [...] EDT Hospital Encounter [facility] [address] [place] [address] Fuad Mcmillan MD [address] [place] [phone] 10/24/2024 9:10 AM EDT - 10/24/2024 10:35 AM EDT Surgery [facility] [address] [place] [address] Fuad Mcmillan MD [address] [facility] [address] [place] [address] Split thickness skin graft to right lower extremity, debridement right lower extremity [47912 (CPT ) +1 more] Scheduled Procedures Name Priority Associated Diagnoses Date/Ti me APPLICATION, GRAFT, SKIN, SPLIT-THICKNESS Wound of right lower extremity, subsequent encounter 10/24/2024 9:10 AM EDT documented as of this encounter Goals Goal Patient Goal Type Associated Problems Recent Progress Patient-Stated? Author Autogenera estrella Goal Care Plan Autogenerated Problem No Mario Yajaira M documented as of this encounter Visit Diagnoses Diagnosis Wound of right lower extremity, subsequent encounter- Primary Wound of right leg- Primary Multiple and unspecified open wound of lower limb, without mention of complication Wound of right lower extremity, subsequent encounter documented in this encounter Additional Health Concerns Active Problems Noted Date Diagnosed Date Autogenerated Problem 10/15/2024 Assessment Noted Time A fall risk assessment has been complete d for the patient 10/15/2024 9:45 AM EDT A Body Mass Index follow-up plan has been documented for the patient 10/15/2024 10:36 AM EDT documented as of this encounter Care Teams Marine Equipment Engineer Relationship Specialty Start Date End Date Car Kent MD [address] [place] [address] PCP - General 08/14/20 documented as of this encounter
--- NOTE | 2024-10-16 11:11 | XR_ITS ---
FINAL REPORT CLINICAL HISTORY: STATUS POST FALL RIB PAIN ON RIGHT SIDE fall october 05 pain radiates when coughing FINDINGS: 2 views of the chest were obtained . The heart is normal in size. The mediastinum is within normal limits. There is mild elevation of the left hemidiaphragm with mild left base atelectasis. There is no pneumothorax. IMPRESSION: Mild left base atelectasis. Reviewed, Interpreted and Dictated by Marisa Barakat MD Transcribed by Martha Nunes Authenticated and [facility]
--- NOTE | 2024-10-16 11:11 | XR_ITS ---
FINAL REPORT CLINICAL HISTORY: s/p fall; pain right side fall october 05 pain radiates when coughing FINDINGS: RIGHT RIBS 3 views were obtained. There are age-indeterminate fractures of the anterolateral right 5th and 6th ribs, favor acute. There is also an acute appearing right seventh rib fracture. There is no pneumothorax. Visualized joint spaces are normally aligned. Soft tissues are unremarkable. IMPRESSION: Right rib fractures, likely of varying age, some of which are acute. No pneumothorax. Reviewed, Interpreted and Dictated by Marisa Barakat MD Transcribed by Martha Nunes Authenticated and [facility]
--- OUTSIDE RECORDS SUMMARY | 2024-10-16 11:12 | XMS_ITS | Clinical Summary ---
Author Organization [facility] Address [address] [place] [address] Care Team Providers Care [employer] Redevelopment Site Manager Name Role Phone Car Kent MD Primary Care Provider [phone] Medications No known medications Active Problems Problem Noted Date Diagnosed Date Wound of right leg 10/15/2024 Assessment & Plan (10/15/2024 10:36 AM EDT): Orders: Case Request Operating Room: Split thickness skin graft to right lower extremity, debridement right lower extremity; Standing Encounters Date Type Department Care Team Description 10/15/2024 9:45 AM EDT Office Visit [facility] Plastic & Reconstructive Surgery [address] [place] [address] Fuad Mcmillan MD Wound of right lower extremity, subsequent encounter (Primary Dx) 10/15/2024 Travel 10/08/2024 9:[address] [facility] Plastic & Reconstructive Surgery [address] [place] [address] Fuad Mcmillan MD Open wound of right lower extremity, initial encounter (Primary Dx) 10/08/2024 Travel from Last 3 Months Immunizations Immunization Administration Dates Next Due Influenza, [...] Pulse 107 10/15/2024 9:42 AM EDT Temperature 36.7 C (98 F) 05/01/2017 11:42 AM EST Respiratory Rate 16 05/01/2017 11:42 AM EST Oxygen Saturation 96% 10/15/2024 9:42 AM EDT Inhaled Oxygen Concentration - - Weight 64.1 kg (141 lb 5 oz) 10/08/2024 9:31 AM EDT Height 165.1 cm (5' 5 ) 10/16/2024 9:55 AM EDT Body Mass Index 23.52 05/01/2017 11:42 AM EST Plan of Treatment Upcoming Encounters Date Type Department Care Team (Late st Contact Info) Description 10/24/2024 9:10 AM EDT Hospital Encounter [facility] [address] [place] [address] uFad Mcmillan MD [address] [place] [address] [phone] 10/24/2024 9:10 AM EDT - 10/24/2024 10:35 AM EDT Surgery [facility] [address] [place] [address] Fuad Mcmillan MD [address] [place] [phone] Split thickness skin graft to right lower extremity, debridement right lower extremity [91227 (CPT ) +1 more] Scheduled Procedures Name Priority Associated Diagnoses Date/Ti me APPLICATION, GRAFT, SKIN, SPLIT-THICKNESS Wound of right lower extremity, subsequent encounter 10/24/2024 9:10 AM EDT Health Maintenance Due Date Last Done Comments [facility]-Bone Density Scan 1944 [facility]-Depression Screening 1944 [facility]-Medicare Annual Wellness (AWV) 1944 [facility]-Infant/Child/Adol SDOH Screenings 1944 [facility]- SDOH Screenings 1962 [facility]-Adult SDOH Screenings 1962 [facility]-DTaP,Tdap,and Td Vaccines (1 - Tdap) 07/26/1963 [facility]-Zoster Vaccines (1 of 2) 1994 [facility]-Pneumococcal Vaccine: 50+ Years (2 of 2 - PPSV23) 02/27/2018 02/27/2017 [facility]-RSV Vaccine: 60+ Years or (1 - 1-dose 75+ series) 07/26/2019 [id number] Vaccine (3 - 2023- season) 2023 03/22/2021, 06/10/2020 [facility]-Influenza Vaccine (#1) 12/02/202401/16, 02/09/2022, 02/11/2021, Additional history exists HPV Vaccines Aged Out No longer eligi [...] on patient's age to complete this topic Goals Goal Patient Goal Type Associated Problems Recent Progress Patient-Stated? Author Danielagenera de la rosa Goal Care Plan Autogenerated Problem No Yajaira Martin Additional Health Concerns Active Problems Noted Date Diagnosed Date Autogenerated Problem 10/15/2024 Insurance [employer] MEDICARE Care Teams [employer] Redevelopment Site Manager Relationship Specialty Start Date End Date Car Kent MD [address] [place] [address] PCP - General 08/14/20
--- OUTSIDE RECORDS SUMMARY | 2024-10-16 11:12 | XMS_ITS | Encounter Summary ---
Author Organization Healthcare Address [address] [id number] Care Team Providers Care Security Assurance Analyst Name Role Phone Car Kent MD Primary Care Provider [phone] Encounter Details Date Type Department Care Team (Latest Contact Info) Description 10/08/2024 Travel Social History Tobacco Use Types Packs/Day Years [...] on file documented as of this encounter Plan of Treatment Upcoming Encounters Date Type Department Care Team (Late st Contact Info) Description 10/24/2024 9:10 AM EDT Hospital Encounter [facility] [address] [place] [address] Fuad Mcmillan MD [address] [place] [phone] 10/24/2024 9:10 AM EDT - 10/24/2024 10:35 AM EDT Surgery [facility] [address] [place] [address] Fuad Mcmillan MD [address] [place] [phone] Split thickness skin graft to right lower extremity, debridement right lower extremity [78529 (CPT ) +1 more] Scheduled Procedures Name Priority Associated Diagnoses Date/Ti me APPLICATION, GRAFT, SKIN, SPLIT-THICKNESS Wound of right lower extremity, subsequent encounter 10/24/2024 9:10 AM EDT documented as of this encounter Visit Diagnoses Not on filedocumented in this encounter Additional Health Concerns Assessment Noted Time A Body Mass Index follow-up plan has been documented for the patient 10/08/2024 10:27 AM EDT documented as of this encounter Care Teams Security Assurance Analyst Relationship Specialty Start Date End Date Car Kent MD [address] [place] [address] PCP - General 08/14/20 documented as of this encounter
--- OUTSIDE RECORDS SUMMARY | 2024-10-16 11:12 | XMS_ITS | Encounter Summary ---
Author Organization Healthcare Address [address] [place] [address] Care Team Providers Care Sign Builder Name Role Phone Car Kent MD Primary Care Provider [phone] Encounter Details Date Type Department Care Team (Latest Contact Info) Description 10/15/2024 Travel Social History Tobacco Use Types Packs/Day Years Used Date Smoking Tobacco: Never Passive Smoke Exposure: Never Smokeless Tobacco: Never Alcohol Use Standard Drinks/Week Comments [...] on file documented as of this encounter Functional Status documented as of this encounter Plan of Treatment Upcoming Encounters Date Type Department Care Team (Late st Contact Info) Description 10/24/2024 9:10 AM EDT Hospital Encounter [facility] [address] [place] [address] Fuad Mcmillan MD [address] [place] [phone] 10/24/2024 9:10 AM EDT - 10/24/2024 10:35 AM EDT Surgery [facility] [address] [place] [address] Fuad Mcmillan MD [address] [place] [address] Split thickness skin graft to right lower extremity, debridement right lower extremity [03198 (CPT ) +1 more] Scheduled Procedures Name Priority Associated Diagnoses Date/Ti me APPLICATION, GRAFT, SKIN, SPLIT-THICKNESS Wound of right lower extremity, subsequent encounter 10/24/2024 9:10 AM EDT documented as of this encounter Goals Goal Patient Goal Type Associated Problems Recent Progress Patient-Stated? Author Autogenera estrella Goal Care Plan Autogenerated Problem No Yajaira Martin documented as of this encounter Visit Diagnoses Not on filedocumented in this encounter Additional Health Concerns Active Problems Noted Date Diagnosed Date Autogenerated Problem 10/15/2024 Assessment Noted Time A fall risk assessment has been complete d for the patient 10/15/2024 9:45 AM EDT A Body Mass Index follow-up plan has been documented for the patient 10/15/2024 10:36 AM EDT documented as of this encounter Care Teams Sign Builder Relationship Specialty Start Date End Date Car Kent MD [address] [place] [address] PCP - General 08/14/20 documented as of this encounter
== END 2024-10-16 23:59 | disposition home or self-care (01) ==
LOC: RAD 11:07
PROVIDERS: PCP Internal Medicine Adolescent Medicine; Visit Provider Physician Assistant
DX: S22.41XA Multiple fractures of ribs, right side, initial encounter for closed fracture (principal); J98.11 Atelectasis; Z91.81 History of falling
CPT/HCPCS: 71046; 71100

== ENCOUNTER 2024-10-24 12:52 | Outpatient (CLI) | payer MEDICARE, SELFPAY ==
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
--- OUTSIDE RECORDS SUMMARY | 2024-10-15 09:45 | XMS_ITS | Encounter Summary ---
Author Organization Healthcare Address [address] [place] [address] Care Team Providers Care Sales Trader Name Role Phone Car Kent MD Primary Care Provider [phone] Encounter Details Date Type Department Care Team (Late st Contact Info) Description 10/15/2024 9:45 AM EDT Office Visit [facility] Plastic & Reconstructive Surgery [address] [place] [phone] Fuad Mcmillan MD [address] [phone] Wound of right lower extremity, subsequent encounter (Primary Dx) Social History Tobacco Use Types Packs/Day Years Used Date Smoking Tobacco: Never Passive Smoke Exposure: Never Smokeless Tobacco: Never Tobacco Cessation:Counseling Given: Not Answered Alcohol Use Standard Drinks/Week Comments No 0 (1 standard drink = 0.6 oz pur e alcohol) AUDIT-C Answer Date Recorded Q1: How often do you have a drink containing alc ohol? Never 10/15/2024 Average Number of Drinks Not on file 025 Frequency of Binge Drinking Not on file 10/01 Comments Unknown Sex and Gender Information Value Date Recorded Sex Assigned at Not on file Legal Sex Female 5:55 PM EDT Gender Identity Not on file Sexual Orientation Not on file documented as of this encounter Last Filed Vital Signs Vital Sign Reading Time Taken Comments Blood Pressure 151/78 10/15/2024 9:42 AM EDT Pulse 107 10/15/2024 9:42 AM EDT Temperature - - Respiratory Rate - - Oxygen Saturation 96% 10/15/2024 9:42 AM EDT Inhaled Oxygen Concentration - - Weight - - Height - - Body Mass Index - - documented in this encounter Functional Status documented as of this encounter Miscellaneous Notes * Assessment & Plan Note - Dulce Talley APRN - 10/15/2024 9:45 AM EDT Associated Problem(s): Wound of right leg Orders: Case Request Operating Room: Split thickness skin graft to right lower extremity, debridement rightlower extremity; Standing * Progress Notes - Dulce Talley APRN - 10/15/2024 9:45 AM EDT Subjective Patient ID: Celeste Delgado is a 79 y.o. female. HPI Celeste Delgado is a 79 y.o. female presenting to clinic for follow up of her right lower extremity wound after a fall on 10/05 2024. The patient states that she suffered a fall in her backyard and scraped her right lower extremity on a brick wall. They have been doing saline wet to dry dressing changes twice a day. She has a history of HTN and seasonal allergies. She denies blood thinner use. She denies history of cardiac or pulmonary pathology. She denies smoking or tobacco use. Past Medical History[1] Surgical History[2] Current Medications[3] Allergies[4] Family History[5] Social History Socioeconomic History Marital status: Spouse name: Not on file Number of children: Not on file Years of education: Not on file Highest education level: Not on file Occupational History Not on file Tobacco Use Smoking status: Never Passive exposure: Never Smokeless tobacco: Never Vaping Use Vaping status: Never Used Substance and Sexual Activity Alcohol use: No Drug use: Never Comment: Drug use: No drug use Sexual activity: Not on file Other Topics Concern Not on file Social History Narrative Marital Status: Engages in hobby Social Drivers of Health Financial Resource Strain: Not on file Food Insecurity: Not on file Transportation Needs: Not on file Physical Activity: Not on file Stress: Not on file Social Connections: Not on file Intimate Partner Violence: Not on file Housing Stability: Not on file Review of Systems All other systems reviewed and are negative. Objective Visit Vitals BP (!) 151/78 Pulse 107 SpO2 96% Physical Exam Vitals reviewed. Constitutional: Appearance: Normal appearance. HENT: Head: Normocephalic. Nose: Nose normal. Mouth/Throat: Mouth: Mucous membranes are moist. Eyes: Pupils: Pupils are equal, round, and reactive to light. Cardiovascular: Pulses: Normal pulses. Pulmonary: Effort: Pulmonary effort is normal. Abdominal: General: Bowel sounds are normal. Musculoskeletal: General: Normal range of motion. Cervical back: Normal range of motion. Comments: Right lower extremity reveals 7 x 8 cm open wound with exposed subcutaneous tissue, muscle, and tendon, paratenon intact, wound bed appears red and healthy without evidence of necrotic tissue, no surrounding erythema, no foul-smelling discharge, 5/5 dorsi and plantar flexion at the ankle,5 of 5 EHL/FHL, sensation intact to light touch in all nerve distributions, palpable DP and PT pulses Skin: General: Skin is warm and dry. Capillary Refill: Capillary refill takes less than 2 seconds. Neurological: Mental Status: She is alert and oriented to person, place, and time. Psychiatric: Mood and Affect: Mood normal. Assessment/Plan Assessment & Plan Wound of right lower extremity, subsequent encounter Orders: Case Request Operating Room: Split thickness skin graft to right lower extremity, debridement rightlower extremity; Ronan Delgado is a 79 y.o. female presenting to clinic for follow up of her right lower extremity wound after a fall on 10/05 2024. The patient will continue saline wet to dry dressing changes Twice a day until she goes to the OR for her split-thickness skin graft application to the wound. We discussed with the patient the surgical plan of care. All indications, risks and benefits have been discussed. All questions were answered today. The patient will meet with the surgery coordinator today regarding scheduling her next week for this procedure. We will give the patient some supplies today. [1] Past Medical History: Diagnosis Date Anxiety [...] [3] No current outpatient medications on file. [4] Not on File [5] Family History Problem Relation Name Age of Onset Cardiac disorder Mother Cardiac disorder Father Lung disease Father Heart attack Daughter Diabetes type I Son Conversions - Other Daughter Rheumatoid aortitis Cosigned by Fuad Mcmillan MD at 10/15/2024 11:18 AM EDT Associated attestation - Fuad Mcmillan MD - 10/15/2024 11:18 AM EDT I saw and evaluated the patient with the BLOSSOM. I discussed the case with the BLOSSOM and agree with the findings and plan as documented. I attest to being involved in providing substantive part of the medical decision making in patient care. Wound appears healthy, tolerating home wet to dry dressing changes. She states that she has considered her options and would like to proceed with skin grafting at this time as opposed to extended dressing care. We discussed risks of debridement and split thickness skin grafting including donor sitescar/wound, pain, infection, bleeding, need for additional procedure, poor skin graft take/loss, chronic wound, need for dressing changes, risks of anesthesia, risk of DVT/PE. Patient voiced understanding and desires to proceed. Will plan to find time next week. documented in this encounter Plan of Treatment Scheduled Procedures Name Priority Associated Diagnoses Date/Ti sc APPLICATION, GRAFT, SKIN, SPLIT-THICKNESS Wound of right lower extremity, subsequent encounter documented as of this encounter Visit Diagnoses Diagnosis Wound of right lower extremity, subsequent encounter- Primary documented in this encounter Additional Health Concerns Assessment Noted Time A fall risk assessment has been complete d for the patient 10/15/2024 9:45 AM EDT A Body Mass Index follow-up plan has been documented for the patient 10/15/2024 10:36 AM EDT documented as of this encounter Care Teams Sales Trader Relationship Specialty Start Date End Date Car Kent MD [address] [place] [address] PCP - General 08/14/20 documented as of this encounter
--- NOTE | 2024-10-24 12:56 | XR_ITS ---
FINAL REPORT CLINICAL HISTORY: PAIN fall on 10/05/24 weakness in right hip COMPARISON: None FINDINGS: RIGHT HIP Two views of the right hip and an AP pelvis view were obtained. There is no acute fracture or dislocation. There is mild diffuse degenerative disc disease. Osteopenia is noted. The visualized bony structures are well aligned. There is no acute soft tissue abnormality. There are old fractures of the pubic rami and pubic symphysis. IMPRESSION: Mild degenerative changes without acute process. Reviewed, Interpreted and Dictated by Marisa Barakat MD Transcribed by Yaquelin Lang Authenticated and [facility]
--- OUTSIDE RECORDS SUMMARY | 2024-10-24 12:56 | XMS_ITS | Encounter Summary ---
Author Organization [facility] Address [address] [id number] Care Team Providers Care Drop Hammer Mechanic Name Role Phone Car Kent MD Primary Care Provider [phone] Encounter Details Date Type Department Care Team [...] as of this encounter Plan of Treatment Scheduled Procedures [...] documented as of this encounter Care Teams Drop Hammer Mechanic Relationship Specialty Start Date End Date Car Kent MD [address] [place] [address] PCP - General 08/14/20 documented as of this encounter
--- OUTSIDE RECORDS SUMMARY | 2024-10-24 12:56 | XMS_ITS | Clinical Summary ---
Author Organization [facility] Address [address] [place] [address] Care Team Providers Care Green Hide Inspector Name Role Phone Car Kent MD Primary Care Provider + [phone] Allergies Active Allergy Reactions Criticality Noted Date Comments Doxycycline Unknown - Patient st ates they do not know rxn details Low 09/19/2014 Ofloxacin Anaphylaxis,Unknown - Patient states they do not know rxn details High 02/08/2010 Penicillins Unknown - Patient st ates they do not know rxn details Low 02/08/2010 As a child Sulfacetamide Rash,Unknown - Patie nt states they do not know rxn details Low 02/08/2010 Medications albuterol (Proventil) (2.5 MG/3ML) 0.083% nebulizer solution USE 1 VIAL IN NEBULIZER EVERY 6 HOURS NEEDED FOR 30 DAYS Active Ventolin HFA 108 (90 Base) MCG/ACT inhaler 4 Active esomeprazole (NexIUM) [address] capsule Take 1 capsule by mouth 2 times a day. Do not open capsule. Active Active Problems Problem Noted Date Diagnosed Date Wound of right leg 10/15/2024 Assessment & Plan (10/15/2024 10:36 AM EDT): Orders: Case Request Operating Room: Split thickness skin graft to right lower extremity, debridement right lower extremity; Standing Encounters Date Type Department Care Team Description 10/15/2024 9:45 AM EDT Office Visit [facility] Plastic & Reconstructive Surgery [address] [place] [phone] Fuad Mcmillan MD Wound of right lower extremity, subsequent encounter (Primary Dx) 10/15/2024 Travel 10/08/2024 9:15 AM EDT Consult [facility] Plastic & Reconstructive Surgery [address] [place] [phone] Fuad Mcmillan MD Open wound of right [...] Binge Drinking Not on file 10/01 Comments No Sex and Gender Information Value Date Recorded [...] 05/01/2017 11:42 AM EST Plan of Treatment Scheduled Procedures Name Priority Associated Diagnoses Date/Ti me APPLICATION, GRAFT, SKIN, SPLIT-THICKNESS Wound of right lower extremity, subsequent encounter Health Maintenance Due Date Last Done Comments [...] or (1 - 1-dose 75+ series) 07/26/2019 [id number] Vaccine (3 - 2023- season) 2023 03/22/2021, [...] patient's age to complete this topic [place] [address] [facility] MEDICARE Care Teams Green Hide Inspector Relationship Specialty Start Date End Date Car Kent MD [address] [place] [address] PCP - General 08/14/20
--- OUTSIDE RECORDS SUMMARY | 2024-10-24 12:56 | XMS_ITS | Encounter Summary ---
Author Organization [facility] Address [address] [place] [address] Care Team Providers Care Health Care Liaison Name Role Phone Car Kent MD Primary Care Provider [phone] Encounter Details Date Type Department Care Team [...] documented as of this encounter Care Teams Health Care Liaison Relationship Specialty Start Date End Date Car Kent MD [address] [place] [address] PCP - General 08/14/20 documented as of this encounter
== END 2024-10-24 23:59 | disposition home or self-care (01) ==
LOC: RAD 12:53
PROVIDERS: PCP Internal Medicine Adolescent Medicine; Visit Provider Internal Medicine Adolescent Medicine
DX: M16.11 Unilateral primary osteoarthritis, right hip
CPT/HCPCS: 73502

== ENCOUNTER 2025-03-05 14:22 | Outpatient (CLI) | payer MEDICARE, SELFPAY ==
--- OUTSIDE RECORDS SUMMARY | 2025-03-05 14:25 | XMS_ITS | Clinical Summary ---
Author Organization [facility] Address [address] [place] [address] Care Team Providers Care Protein Specialist Name Role Phone Car Kent MD Primary Care Provider + [phone] Allergies Active Allergy Reactions Criticality Noted Date [...] Encounters Date Type Department Care Team Description 12/10/2024 2:00 PM EDT Office Visit [facility] Plastic & Reconstructive Surgery [address] [place] [phone] Fuad Mcmillan MD Wound of right lower extremity, subsequent encounter (Primary Dx) 12/10/2024 Travel from Last 3 Months Immunizations Immunization [...] Sign Reading Time Taken Comments Blood Pressure 158/77 12/10/2024 1:32 PM EDT Pulse 74 12/10/2024 1:32 PM EDT Temperature 36.7 C (98 F) 05/01/2017 11:42 AM EST Respiratory Rate 16 05/01/2017 11:42 AM EST Oxygen Saturation 97% 12/10/2024 1:32 PM EDT Inhaled Oxygen Concentration - - Weight 64 kg (141 lb 1.5 oz) 12/10/2024 1:32 PM EDT Height 165.1 cm (5' 5 ) 12/10/2024 1:32 PM EDT Body Mass Index 23.48 12/10/2024 1:32 PM EDT Plan of Treatment Health Maintenance Due Date Last Done Comments [facility]-Bone Density Scan 1944 [facility]-Depression Screening 1944 [facility]-Medicare Annual Wellness (AWV) 1944 [facility]-/Child/Adol SDOH Screenings 1944 [facility]- SDOH Screenings 1962 [facility]-Adult SDOH Screenings 1962 [facility]-Zoster Vaccines (1 of 2) 1994 [facility]-Pneumococcal Vaccine: 50+ Years (2 of 2 - PCV20 or PCV21) 02/27/2018 02/27/2017 [facility]-RSV Vaccine: 60+ Years or (1 - 1-dose 75+ series) 07/26/2019 [id number] Vaccine (3 - 2024- season) 2024 03/22/2021, 06/10/2020 [facility]-Influenza Vaccine (#1) 12/02/202401/16, 02/09/2022, 02/11/2021, Additional history exists [facility]-DTaP,Tdap,and Td Vaccines (2 - Td or Tdap) 10/16/2034 10/16/2024 HPV Vaccines Aged Out No longer eligi [...] patient's age to complete this topic Insurance [facility] MEDICARE Care Teams Protein Specialist Relationship Specialty Start Date End Date Car Kent MD [address] [place] [address] [facility] - General 08/14/20
--- NOTE | 2025-03-05 14:26 | XR_ITS ---
FINAL REPORT CLINICAL HISTORY: PAIN FINDINGS: LEFT KNEE Four views were obtained. There is no fracture or dislocation. There is advanced narrowing of the lateral compartment. There are hypertrophic changes at the lateral joint margin. There is widening of the medial compartment. There are moderate hypertrophic changes of the patellofemoral joint space. Osteophytes are seen along the undersurface of the patella. No soft tissue abnormality is identified. IMPRESSION: Advanced hypertrophic changes of osteoarthritis Reviewed, Interpreted and Dictated by Amol Eagle MD Transcribed by Edna Torres Authenticated and [facility]
== END 2025-03-05 23:59 | disposition home or self-care (01) ==
LOC: RAD 14:23
PROVIDERS: PCP Internal Medicine Adolescent Medicine; Visit Provider Orthopaedic Surgery Adult Reconstructive Orthopaedic Surgery
DX: M17.12 Unilateral primary osteoarthritis, left knee (principal)
CPT/HCPCS: 73564